=== PATIENT | female | born 1995 | race Caucasian/White ===

== ENCOUNTER 2017-05-06 10:25 | Emergency (ER) | payer OTHER ==
[2017-05-06 13:22] VITALS: BP 126/78
--- NOTE | 2017-05-06 13:33 | UC ---
Throat Pain/Nasal [place] HPI - HPI Summary HPI Summary: Awoke yesterday with laryngitis. Had a URI the week before and was getting better before the laryngitis. Occasional cough. Some wheezing. - History of Current Complaint Chief Complaint: UCGeneralIllness Stated Complaint: SORE THROAT, LOSS OF VOICE Time Seen by Provider: 05/06/17 13:25 Hx Obtained From: Patient Hx Last Menstrual Period: "about a month ago ... I get it every four months" ?: No Onset/Duration: Sudden Onset, Worse Since - yesterday. Cough: Nonproductive Associated Signs & Symptoms: Positive: Wheezing, Hoarseness. Negative: Dysphagia, Drooling, Sinus Discomfort, Fever Related History: Seasonal Allergies, Smoking - Allergies/Home Medications Allergies/Adverse Reactions: Allergies Allergy/AdvReac Type Severity Reaction Status Date / Time No Known Allergies Allergy Verified 05/06/17 13:18 Home Medications: Home Medications Escitalopram (NF) [Lexapro 10 mg (NF)] 10 mg PO DAILY 05/06/17 [History Confirmed 05/06/17] PMH/Surg Hx/FS Hx/Imm Hx Psychological History: Anxiety, Depression - Surgical History Surgical History: None - Family History Known Family History: Negative: Cardiac Disease, Hypertension, Diabetes - Social History Occupation: Employed Full-time Lives: With Family Alcohol Use: None Substance Use Type: None Smoking Status (MU): Heavy Every Day Tobacco Smoker Type: Cigarettes Amount Used/How Often: 1/2 PPD Length of Time of Smoking/Using Tobacco: Since Age 12 Cessation Counseling: Patient Advised to Stop - Immunization History Most Recent Influenza Vaccination: Not the Season Review of Systems Constitutional: Fatigue ENT: Sore Throat Respiratory: Shortness Of Breath, Cough Cardiovascular: Chest Pain Is Patient Immunocompromised?: No All Other Systems Reviewed And Are Negative: Yes Physical Exam Triage Information Reviewed: Yes Appearance: No Pain Distress, Well-Nourished, Ill-Appearing - mild Vital Signs: Initial Vital Signs Temp 98.7 F 05/06/17 13:16 Pulse 80 05/06/17 13:16 Resp 16 05/06/17 13:16 BP 126/78 05/06/17 13:16 Pulse Ox 98 05/06/17 13:16 Vital Signs Reviewed: Yes Eyes: Positive: Conjunctiva Clear ENT: Positive: Pharyngeal erythema, Nasal congestion, TMs normal Neck exam: Normal Respiratory: Positive: Lungs clear, Wheezing - expiratory with wheeze Cardiovascular Exam: Normal Musculoskeletal Exam: Normal Neurological Exam: Normal Psychological Exam: Normal Skin Exam: Normal Throat Pain/Nasal Course/Dx - Differential Dx/Diagnosis Differential Diagnosis/HQI/PQRI: Laryngitis, Otitis Media, URI Provider Diagnoses: Acute laryngitis. Acute bronchospasm Discharge - Discharge Plan Condition: Stable Disposition: HOME Prescriptions: predniSONE TAB* [Deltasone TAB*] 20 mg PO DAILY #18 tab Patient Education Materials: Laryngitis (ED), Bronchospasm (ED), Prednisone ( By mouth) Forms: *Work Release Referrals: Sherry Ledesma MD [Primary Care Provider] - Additional Instructions: Smoking Cessation Tricks. 1. Cut down by 1 cigarette per day every 2-3 days. Write the number of smokes for that day on the calendar. 2. Identify triggers to smoking: after meals, on the phone, in the car, with coffee, on breaks at work, etc. 3. Formulate a plan with a behavior to replace the smoking. Fireballs in the car , doodle pad on the phone, flavored creamer for the coffee, go for a walk after a meal or on break at work. 4. For stress smokes do deep breathing relaxation. Breath deep in through the nose hold the breath in for a few seconds then breath out slowly through the mouth.
== END 2017-05-06 13:45 | disposition home or self-care (01) ==
LOC: UCCORT 10:25
DX: J04.0 Acute laryngitis (principal); J98.01 Acute bronchospasm; F41.9 Anxiety disorder, unspecified; F32.9 Major depressive disorder, single episode, unspecified; F17.210 Nicotine dependence, cigarettes, uncomplicated
CPT/HCPCS: 99212; G0463

== ENCOUNTER 2019-08-31 09:59 | Emergency (ER) | payer OTHER, MEDICAID ==
--- NOTE | 2019-08-31 10:36 | UC ---
FLU HPI - HPI Summary HPI Summary: 24yo with one day of subjective fever and cough, whose daughter tested positive for flu on 08/28/19, currently on Tamiflu and improving. No other infection contacts, not short of breath. Primary reason for visit is the need for a work for note. No covid contact, feels only mildly unwell, without nausea of vomiting. - History of Current Complaint Chief Complaint: UCRespiratory Stated Complaint: FEVER, COUGH, BODY ACHES (EXPOSED TO FLU) Time Seen by Provider: 08/31/19 10:20 Hx Obtained From: Patient Hx Last Menstrual Period: 08/28/19 Onset/Duration: Gradual Onset, Lasting Days - 2 Severity Currently: Mild Severity Initially: Mild Pain Intensity: 0 Associated Signs & Symptoms: Positive: Cough, Nasal Congestion - Risk Factors Influenza Risk Factors: Negative - Allergy/Home Medications Allergies/Adverse Reactions: Allergies Allergy/AdvReac Type Severity Reaction Status Date / Time No Known Allergies Allergy Verified 08/31/19 10:15 Home Medications: Home Medications Etonogestrel IMPLANT(NF) [Implanon (NF)-not available] 68 mg IMPLANT ONCE [History Confirmed 08/31/19] Oseltamivir CAP* [Tamiflu CAP*] 75 mg PO BID #10 cap 08/31/19 [Rx] PMH/Surg Hx/FS Hx/Imm Hx Previously Healthy: Yes - Surgical History Surgical History: None - Family History Known Family History: Negative: Cardiac Disease, Hypertension, Diabetes - Social History Alcohol Use: None Substance Use Type: None Smoking Status (MU): Heavy Every Day Tobacco Smoker Type: Cigarettes Amount Used/How Often: 1/2 PPD Length of Time of Smoking/Using Tobacco: Since Age 12 - Immunization History Most Recent Influenza Vaccination: Not the 2017/2017 Season Review of Systems All Other Systems Reviewed And Are Negative: Yes Constitutional: Positive: Fever Skin: Positive: Negative Eyes: Positive: Negative ENT: Positive: Nasal Discharge Respiratory: Positive: Cough Cardiovascular: Positive: Negative Gastrointestinal: Positive: Negative Genitourinary: Positive: Negative Motor: Positive: Negative Neurovascular: Positive: Negative Musculoskeletal: Positive: Negative Neurological/Mental Status: Positive: Negative Psychological: Positive: Negative Is Patient Immunocompromised?: No Physical Exam Triage Information Reviewed: Yes Vital Signs Reviewed: Yes ENT: Positive: Pharynx normal Respiratory: Positive: Lungs clear, Normal breath sounds, No respiratory distress Cardiovascular: Positive: RRR, No Murmur, Tachycardia Musculoskeletal Exam: Normal Neurological Exam: Normal Psychological Exam: Normal Skin Exam: Normal Diagnostics - Laboratory Lab Results: ifnluenza A positive. Flu Course/Dx - Course Course Of Treatment: Tamiflu for treatment of influenza. - Differential Dx/Diagnosis Differential Diagnosis/HQI/PQRI: Influenza, Upper Respiratory Infection, Other - COVID Provider Diagnosis: Influenza A Discharge ED - Sign-Out/Discharge Documenting (check all that apply): Patient Departure All imaging exams completed and their final reports reviewed: No Studies - Discharge Plan Condition: Stable Disposition: HOME Prescriptions: Oseltamivir CAP* [Tamiflu CAP*] 75 mg PO BID #10 cap Patient Education Materials: Influenza (ED) Forms: *Work Release Referrals: Rajwinder Benson MD [Primary Care Provider] - Additional Instructions: You have tested positive for influenza A. Take the full course of Tamiflu. Remain off work until you are free of fever for 24 hours. Continue to self quarantine due to flu, and remain alert to persistent respiratory symptoms which might prompt re-evaluation. - Billing Disposition and Condition Condition: STABLE Disposition: Home
[2019-08-31 10:37] VITALS: BP 138/82
[2019-08-31 10:37] LABS: Influenza A Molecular POSITIVE (Negative)
== END 2019-08-31 10:52 | disposition home or self-care (01) ==
LOC: UCCORT 09:59
DX: J10.1 Influenza due to other identified influenza virus with other respiratory manifestations (principal); F17.210 Nicotine dependence, cigarettes, uncomplicated
CPT/HCPCS: 99212; G0463